=== PATIENT | female | born 1985 | race Caucasian/White ===

== ENCOUNTER → 2016-10-09 | Outpatient (CLI) | payer BC ==
[~2016-10-09] MED LIST: LANSINOH FOR BR1 OIN TP; MOTRIN 600600 MG/TAB PO; NORCO 325 MG-7.1 TAB PO; PERCOCET 325 MG1 TA2 PO; PRENATAL1 TA1; PRENATAL1 TA1 PO; SENOKOT S 50 MG1 TAB PO; XARELTO10 MG PO
== END ==
LOC: COL.RAD 08:14
DX: K76.0 Fatty (change of) liver, not elsewhere classified (principal); R10.11 Right upper quadrant pain

== ENCOUNTER → 2017-01-08 | Outpatient (REF) | LOC: WSOH 09:46 | DX: Z01.89 Encounter for other specified special examinations (principal) ==

== ENCOUNTER 2017-11-06 11:43 | Outpatient (CLI) | payer BC ==
[~2017-11-06] VITALS: Ht 167.6 cm; Wt 88.6 kg
[2017-11-06 12:04] VITALS: BP 136/68; PULSE 84; TEMP 98.2
[2017-11-06] MEDS ORDERED: PRENATAL MVI PO (12:17)
[2017-11-06] MEDS ORDERED: ASPIRIN 81M81 MG/TA2 PO (12:18)
[2017-11-06 12:45] VITALS: BP 122/71; PULSE 85
[2017-11-06 14:15] VITALS: BP 128/70; PULSE 89
[2017-11-06 14:23] LABS: COLLECTION METHOD CLEAN CATCH
[2017-11-06 14:29] LABS: MUCOUS Present /lpf; PH 6 (5-8); SQUAMOUS EPITHELIAL 0-2 /hpf; URINE APPEARANCE Clear; URINE BACTERIA Rare /hpf; URINE BILIRUBIN Negative (NEGATIVE); URINE BLOOD Negative (NEGATIVE); URINE COLOR Yellow; URINE GLUCOSE Negative (NEGATIVE); URINE KETONE 1+ (NEGATIVE); URINE LEUKOCYTE ESTERASE Negative (NEGATIVE); URINE NITRATE Negative (NEGATIVE); URINE PROTEIN(semi-quant) Negative (NEGATIVE); URINE RBC None Seen /hpf; URINE UROBILINOGEN Negative (NEGATIVE); URINE WBC None Seen /hpf
[2017-11-06 15:45] VITALS: BP 136/83; PULSE 90
[2017-11-06] MEDS ORDERED: PROCARDIA10 MG PO (16:01)
[2017-11-06 16:15] VITALS: BP 137/78; PULSE 93
== END 2017-11-06 17:10 | disposition home or self-care (01) ==
LOC: LDRO 11:43
PROVIDERS: Obstetrics & Gynecology
DX: O36.8130 Decreased fetal movements, third trimester, not applicable or unspecified (principal); O16.3 Unspecified maternal hypertension, third trimester; Z3A.31 31 weeks gestation of pregnancy
CPT/HCPCS: J0702

== ENCOUNTER 2017-11-07 16:12 | Outpatient (CLI) | payer BC ==
[~2017-11-07] VITALS: Ht 167.6 cm; Wt 88.6 kg
[~2017-11-07 16:12] MED LIST changes: +ASPIRIN 81M81 MG/TA2 PO; +PRENATAL MVI PO; +PROCARDIA10 MG PO
[2017-11-07 16:34] VITALS: BP 122/72; PULSE 76; TEMP 98.6
[2017-11-07 16:40] VITALS: BP 119/72; PULSE 86
== END 2017-11-07 16:45 | disposition home or self-care (01) ==
LOC: LDRO 16:12
DX: Z34.83 Encounter for supervision of other normal pregnancy, third trimester (principal); Z3A.31 31 weeks gestation of pregnancy
CPT/HCPCS: J0702

== ENCOUNTER 2018-01-06 01:31 | Inpatient (IN) | payer BC ==
[~2018-01-06] VITALS: Ht 167.6 cm; Wt 99.1 kg
[2018-01-06] VITALS (81 sets, daily range): BP systolic 113–161; BP diastolic 61–96; PULSE 65–97; TEMP 97.8–98.6
[2018-01-06 02:39] LABS: BASO % 0.4 % (0.0-2.0); EOS # 0.2 (0.0-0.7); EOS % 1.5 % (0-4.0); GRAN # 6.8 (1.4-6.5); GRAN % 66.5 % (42.2-75.2); HEMOGLOBIN 12.1 g/dl (12.5-16.0); LYMPH # 2.4 (1.2-3.4); LYMPH % 23.4 % (20.0-51.0); MEAN CELL VOLUME 94 fl (80.0-100.0); MEAN CORPUSCULAR HEMOGLOBIN 34 pg (27.0-31.0); MEAN CORPUSCULAR HGB CONC 36 g/dl (33.0-37.0); MEAN PLATELET VOLUME 11.1 fl (7.4-10.4); MONO # 0.8 (0.1-0.6); MONO % 7.6 % (1.7-9.3); PLATELET COUNT 200 K/mm3 (130-400); RED BLOOD COUNT 3.61 M/mm3 (4.10-5.30); REDCELL DISTRIBUTION WIDTH-CV 11.9 % (11.5-14.5)
[2018-01-06 02:40] LABS: HEMATOCRIT 33.8 % (37.0-47.0)
[2018-01-07 03:14] VITALS: BP 120/71; PULSE 77; TEMP 98
[2018-01-07 07:00] VITALS: BP 128/81; PULSE 79; TEMP 97.8
[2018-01-07] MEDS ORDERED: PERCOCET 325 MG1 TA2 PO (08:28)
[2018-01-07] MEDS ORDERED: IBU600 MG PO (08:28)
[2018-01-07 11:30] VITALS: BP 122/81; PULSE 91; TEMP 97.5
[2018-01-07 15:35] VITALS: BP 131/85; PULSE 95; TEMP 98.2
[2018-01-07 20:45] VITALS: BP 120/69; PULSE 82; TEMP 97.9
[2018-01-08 07:48] VITALS: BP 133/82; PULSE 81; TEMP 98
== END 2018-01-08 12:35 | disposition home or self-care (01) | DRG 766 ==
LOC: LDRO 01:31 → LDR 01:40 → OB 19:50
PROVIDERS: Obstetrics & Gynecology
PROC: 10D00Z1 Extraction of Products of Conception, Low, Open Approach (ICD-10-PCS; principal; 2018-01-06)
PROC: 0UT70ZZ Resection of Bilateral Fallopian Tubes, Open Approach (ICD-10-PCS; 2018-01-06)
DX: O34.211 Maternal care for low transverse scar from previous cesarean delivery (principal); Z3A.40 40 weeks gestation of pregnancy; Z37.0 Single live birth; Z40.03 Encounter for prophylactic removal of fallopian tube(s)
CPT/HCPCS: J0171; J0690; J1885; J2175; J2370; J2400; J2405; J2590; J2795; J3010; J7120

== ENCOUNTER → 2018-01-11 | Outpatient (CLI) | payer BC ==
[~2018-01-11] MED LIST changes: +IBU600 MG PO
== END ==
LOC: OLC 11:56
DX: Z39.1 Encounter for care and examination of lactating mother (principal); Z71.89 Other specified counseling

== ENCOUNTER → 2018-01-19 | Outpatient (CLI) | payer BC | LOC: LAC 10:01 | DX: Z39.1 Encounter for care and examination of lactating mother (principal); Z71.89 Other specified counseling ==

== ENCOUNTER → 2018-01-26 | Outpatient (CLI) | payer BC | LOC: LAC 10:07 | DX: Z39.1 Encounter for care and examination of lactating mother (principal); Z71.89 Other specified counseling ==

== ENCOUNTER → 2018-02-02 | Outpatient (CLI) | payer BC | LOC: LAC 10:00 | DX: Z39.1 Encounter for care and examination of lactating mother (principal); Z71.89 Other specified counseling ==

== ENCOUNTER → 2018-02-09 | Outpatient (CLI) | payer BC | LOC: LAC 09:55 | DX: Z39.1 Encounter for care and examination of lactating mother (principal); Z71.89 Other specified counseling ==

== ENCOUNTER → 2018-02-16 | Outpatient (CLI) | payer BC | LOC: OLC 09:46 | DX: Z39.1 Encounter for care and examination of lactating mother (principal); Z71.89 Other specified counseling ==

== ENCOUNTER → 2018-03-02 | Outpatient (CLI) | payer BC | LOC: LAC 09:49 | DX: Z39.1 Encounter for care and examination of lactating mother (principal); Z71.89 Other specified counseling ==

== ENCOUNTER → 2018-03-30 | Outpatient (CLI) | payer BC | LOC: LAC 09:50 | DX: Z39.1 Encounter for care and examination of lactating mother (principal); Z71.89 Other specified counseling ==